=== PATIENT | female | born 1965 | race Caucasian/White ===

== ENCOUNTER 2017-09-08 08:30 | Outpatient (RCR) | payer OTHER, SELFPAY | END 2017-09-10 23:59 | LOC: NS 08:30 | PROVIDERS: Family Provider Student in an Organized Health Care Education/Training Program; PCP Student in an Organized Health Care Education/Training Program | DX: K90.0 Celiac disease (principal); M81.0 Age-related osteoporosis without current pathological fracture; E55.9 Vitamin D deficiency, unspecified; R06.83 Snoring; E66.9 Obesity, unspecified; N20.0 Calculus of kidney; Z86.12 Personal history of poliomyelitis; Z68.27 Body mass index [BMI] 27.0-27.9, adult; Z71.3 Dietary counseling and surveillance | CPT/HCPCS: 97802; 97803 ==

== ENCOUNTER 2017-10-06 10:30 | Outpatient (RCR) | payer OTHER, SELFPAY | END 2017-10-06 23:59 | LOC: NS 10:30 | PROVIDERS: Family Provider Student in an Organized Health Care Education/Training Program; PCP Student in an Organized Health Care Education/Training Program | DX: K90.0 Celiac disease (principal); M81.0 Age-related osteoporosis without current pathological fracture; E55.9 Vitamin D deficiency, unspecified; R06.83 Snoring; E66.9 Obesity, unspecified; N20.0 Calculus of kidney; Z86.12 Personal history of poliomyelitis; Z68.27 Body mass index [BMI] 27.0-27.9, adult; Z71.3 Dietary counseling and surveillance | CPT/HCPCS: 97803 ==

== ENCOUNTER 2018-04-11 20:27 | Emergency (ER) | payer OTHER, SELFPAY ==
[2018-04-11 20:28] VITALS: BP 143/85; PULSE 77; RESP 17; TEMP 36.6; O2SAT 99; BMI 27.4
--- NOTE | 2018-04-11 22:25 | ED.VISSUMM ---
- ER Visit Summary Date of Service: 04/11/18 Chief Complaint: Sciatica History of Present Illness: The patient is a 53 F with sciatica that has been bothering her for 8 weeks. She came in today because the pain was worse. She saw her primary doctor and had x-rays that showed no fracture but she does have degenerative disc disease and arthritis. She has been on multiple rounds of prednisone, muscle relaxers, ibuprofen, and gabapentin. She has seen a massage therapist as well as a chiropractor. She tried heat and ice, and nothing seems to help. Denies any injuries. Denies any issues with her bowel or bladder. Denies fever or immune compromise. Denies any prior back surgery. Denies any abdominal or GI symptoms. Physical Examination: Afebrile and vital signs unremarkable. Alert and oriented. No acute distress. Left lower assembler hydraulic backhoe to palpation in the paraspinal region. No spinal tenderness. Skin appears normal. Straight leg raise negative. Normal and symmetric strength and sensation. Normal reflexes. Strong equal pulses. Test Results: None indicated emergently Emergency Department Course and Treatment: No imaging or diagnostic testing is indicated emergently. This is likely sciatica. There is nothing to suggest infection, GI, or vascular issue. No urinary or CARETAKER GROUNDS symptoms. Patient treated with subcutaneous Dilaudid as well as Norflex. Patient will continue her home medication. She was given a short course of [place]. Follow-up with primary care. Treatment Plan: As above Disposition: Discharge Impression: 1. Left-sided sciatica This note was generated with [employer] dictation software. It may contain incorrect words, spelling, and punctuation that were not noted in review of the chart prior to signing ED Disposition - Plan for ED Patient: Chief Complaint: Back Referrals: Alexx Martínez DO [Primary Care Provider] -
[2018-04-11] MEDS: HYDROmorphone 1 MG/ML Syringe SC (22:28)
[2018-04-11] MEDS: Orphenadrine 60 MG/2 ML Ampul IM (22:28)
--- NOTE | 2018-04-11 22:30 | ED.DCSUM_ITS ---
- ER Visit Summary Date of Service: 04/11/18 Chief Complaint: Sciatica History of Present Illness: The patient is a 53 F with sciatica that has been bothering her for 8 weeks. She came in today because the pain was worse. She saw her primary doctor and had x-rays that showed no fracture but she does have degenerative disc disease and arthritis. She has been on multiple rounds of prednisone, muscle relaxers, ibuprofen, and gabapentin. She has seen a massage therapist as well as a chiropractor. She tried heat and ice, and nothing seems to help. Denies any injuries. Denies any issues with her bowel or bladder. Denies fever or immune compromise. Denies any prior back surgery. Denies any abdominal or GI symptoms. Physical Examination: Afebrile and vital signs unremarkable. Alert and oriented. No acute distress. Left lower backup operator to palpation in the paraspinal region. No spinal tenderness. Skin appears normal. Straight leg raise negative. Normal and symmetric strength and sensation. Normal reflexes. Strong equal pulses. Test Results: None indicated emergently Emergency Department Course and Treatment: No imaging or diagnostic testing is indicated emergently. This is likely sciatica. There is nothing to suggest infection, GI, or vascular issue. No urinary or CIGARET[employer] ROLL[employer] symptoms. Patient treated with subcutaneous Dilaudid as well as Norflex. Patient will continue her home medication. She was given a short course of [place]. Follow-up with primary care. Treatment Plan: As above Disposition: Discharge Impression: 1. Left-sided sciatica This note was generated with [employer] dictation software. It may contain incorrect words, spelling, and punctuation that were not noted in review of the chart prior to signing ED Disposition - Plan for ED Patient: Chief Complaint: Back Referrals: Alexx Martínez DO [Primary Care Provider] -
--- NOTE | 2018-04-11 22:30 | ED.DEP ---
ED Disposition - Plan for ED Patient: Chief Complaint: Back Instructions: ED Spasm Back No Trauma Prescriptions: Oxycodone HCl/Acetaminophen [Percocet 5/325] 1 tab PO Q6H PRN PRN 3 Days #12 tab PRN Reason: Pain Referrals: Alexx Martínez DO [Primary Care Provider] -
== END 2018-04-11 22:39 | disposition home or self-care (01) ==
PROVIDERS: Emergency Provider Emergency Medicine; Family Provider Student in an Organized Health Care Education/Training Program; PCP Student in an Organized Health Care Education/Training Program
DX: M54.32 Sciatica, left side (principal)
CPT/HCPCS: 96372; 99282

== ENCOUNTER 2018-05-26 08:30 | Outpatient (RCR) | payer OTHER, SELFPAY ==
--- NOTE | 2018-04-19 08:58 | HP.PTEVAL_ITS ---
Patient's Visit Information HÉCTOR GONZALES is a 53 year old F referred to Physical Therapy by Rachel Boyle NP with a diagnosis of sciatica. Date of Evaluation: 04/19/18 Physical Therapist: José Miguel Enrique DPT, OCS, CSCS - Visit Plan Frequency: 3x /Week Duration: 4 Weeks Plan: 3x/week for 3-4 weeks for-. 1. Gradual extension(may need to start prone on pillows) and pressure progression. 2. postural and body mechanics focus with towel roll. 3. Core ROM and strength to tolerance. 4. IF ES and MH to LB prone. Pt in a lot of pain and frustrated adn MRI is appropriate based on length of her symptoms and lack of improvement...she will see doctor today. - Subjective Findings: Having sciatica issues. Been going on for 9 weeks insidiously possibly after new [employer] class with ropes. L thigh started aching and shot down leg. Has had it on R in past. LBP also off to the left. Constant. Pain up to 10/10 in last couple weeks and to ER. Walking in today is 7/10. Did nto sleep well last night. Can sleep a little bit then wakes up. Needs to get up and walk around house. Morning is slow moving. Usually better later in day depending on work. 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 Missed work last Thursday due to back pain and missed sleep. it is worsening overall. Had two rounds of prenisone which did not help at all. Got muscle relaxer shot whcih helped only for a day. is able to do basic ADLs but they hurt and are slow. Needs husbands help with shoes sometimes more so in morning. Hobbies when healthy include exercising and playing with grandkids age 5 and 3. Family doctor sent to PT, ER doctor injected her. Sitting and getting up is worse. Tingly fornt of L thigh every now and then. - Pain L LBP Pain Intensity (Out of 10): 7 Pain Intensity Range: 3, 10 - Objective Walk and transfers I but gingerly. LB AROM max limited in ext adn flexion with pain in L leg, SB are slow but without increased pain. reflexes 2/3 patella and achilles. sensation WNL in LE right now to gross light touch. strength 4/5 LE without myotomal. + L slump and SLR test, + L L/S facet compression. repeated PPU: Worse in leg to 6/10 form 5/10. jozef: W into heel of L LE. prone on 2 pillows NE. prone on 4 pillows.: centralzes to thigh and LB B at 5/10, out of foot. ES and MH put on in this position. Very unstable responses to prone on pillows and ext. - Goals Goal 1:: Full L/S AROM without pain Goal Time Frame: 4-6 Weeks Goal 2:: Sleep withotu waking and get out of bed in am without increased pain Goal Time Frame: 4-6 Weeks Goal 3:: Patient feel 90% better with LB adn leg pain to 1/10 at worst and intermittent. Goal Time Frame: 4-6 Weeks Goal 4:: Work withotu increased pain Goal Time Frame: 4-6 Weeks - Rehabilitation Potential Physical Therapy Diagnosis: sciatica likely discal in nature Rehabilitation Potential: Questionable - Anticipated Interventions Patient/Client Instruction: Educate patient on: Condition, Plan of Care For the Purpose of:: To decrease pain, To increase ROM, To improve muscle performance and motor function, To improve ability of physical actions for home/community/work/leisure Therapeutic Exercise to Include: Passive ROM, Active ROM, Dynamic Lumbar Stabilization, Sergio Exercises For the Purpose of:: To decrease pain, To increase ROM, To improve muscle performance and motor function, To improve ability of physical actions for home/community/work/leisure Manual Therapy Techniques to Include: Mobilization Comment: ext For the Purpose of:: To increase ROM IF ES: Yes Thermo therapy (hot pack): Yes For the Purpose of:: To decrease pain Thank you for the opportunity to evaluate your patient. For Medicare and Medicare HMO plans, please review the plan of care and approve it. It will need to be FAXED BACK to us at [phone] for Medicare purposes. For Medicare only, by signing this I certify the plan of care. Please let me know if there are questions or concerns regarding this plan of care. Physician Signature: Date:
--- NOTE | 2018-05-26 08:57 | HP.PTDCSUM ---
HP - PT D/C Summary It has been my pleasure to treat HÉCTOR GONZALES under orders from Rachel Boyle NP, for the diagnosis of Left sciatica for a total of 9 visit(s). Discharge Date: 05/26/18 Please see the following information for a summary of their discharge status. - Subjective Subjective: Sitting too long is still uncomfy but pain is not bad at all. 4/10 playing on floor with grandkids. 0/10 at rest. Hasn't started exercising yet. Wants to do Terence and step class. Feels better after ext exercises 2x/day.Pt wishes to be done with PT and do ex at home. - Pain L LBP Pain Intensity (Out of 10): 3 LLE Pain Intensity (Out of 10): 3 - Overall Improvement % Improvement: 75 - Objective Objective/Function: extension and SB motions are good. forward flexion still limited with posterior L HS pain tranisently like adhering tissue. reflexes 2/3 patella and achilles and 5/5 strength in LE. OVERALL DOING EXCELLENT EXCEPT FOR ADHERENT TISSUE IN POSTERIOR L LB. I FEEL PATIENT CAN MANAGE THIS AT HOME WITH HER HEP AND HAVE EDUCATED ON HER ON EXPECTATIONS OF GRADUAL CONTINUE IMPROVEMENT WITH HER FORWARD MOTION. - Goals Goal 1:: Full L/S AROM without pain Goal Progress: Progressing Goal 2:: Sleep withotu waking and get out of bed in am without increased pain Goal Progress: Goal Met Goal 3:: Patient feel 90% better with LB adn leg pain to 1/10 at worst and intermittent. Goal Progress: Progressing Goal 4:: Work withotu increased pain Goal Progress: Goal Met - Plan Plan: D/C - D/C Information Discharge Comments: pT DOING WELL IN ALL ASPECTS EXCEPT FORWARD BENDING WHICH SHE FEEL CONFIDENT WORKING ON AT HOME. SHE WILL DO THIS UNTIL DOCTOR F/U IN MID JUNE BUT SHOULD BE SENT BACK IF NOT IMPROVING BY THAT TIME WITH FORWARD FLEXION If there are questions or concerns regarding this patient's physical therapy, please feel free to call me at [phone]. Thank you for the referral of this patient. Sincerely, José Miguel Enrique, DPT, OCS, CSCS
== END 2018-05-26 19:00 | disposition home or self-care (01) ==
LOC: PT 08:30
PROVIDERS: Family Provider Student in an Organized Health Care Education/Training Program; PCP Student in an Organized Health Care Education/Training Program; Visit Provider Nurse Practitioner Adult Health
DX: M54.32 Sciatica, left side (principal)
CPT/HCPCS: 97110; 97162; 97530